=== PATIENT | male | born 1945 | race Caucasian/White ===

== ENCOUNTER → 2019-12-28 | Outpatient (CLI) | payer MEDICARE, OTHER ==
[~2019-12-28] MED LIST: prilosec
--- NOTE | 2019-12-28 14:42 | Diagnostic Imaging Report ---
EXAM: CT Chest WITHOUT intravenous contrast 12/28/2019 2:30 PM INDICATION: Pulmonary nodule, weight loss COMPARISON: None TECHNIQUE: Chest was scanned utilizing a multidetector helical scanner from the lung apex through the level of the adrenal glands without administration of IV contrast. Coronal and sagittal reformations were obtained. Routine protocol was performed. IV CONTRAST: None RADIATION DOSE: Total DLP: 265 mGy*cm. Dose modulation, iterative reconstruction, and/or weight based adjustment of the mA/kV was utilized to reduce the radiation dose to as low as reasonably achievable. COMPLICATIONS: None FINDINGS: LINES/ TUBES: None. LUNGS AND AIRWAYS: The central airways are patent. No focal consolidation or pulmonary edema. Minimal lower lobe subsegmental atelectasis. No suspicious pulmonary nodules. PLEURA: The pleural spaces are clear. HEART AND MEDIASTINUM: 8 mm hypodense right thyroid nodule is likely clinically insignificant and does not meet criteria for further imaging follow-up. No supraclavicular, axillary, mediastinal, or hilar lymphadenopathy. The heart is not enlarged. No pericardial effusion. Scattered atherosclerotic calcifications of the coronary arteries and thoracic aorta. UPPER ABDOMEN: No acute findings in the upper abdomen. BONES: No acute osseous injury. No suspicious lytic or blastic lesions. SOFT TISSUES: Unremarkable. IMPRESSION: No suspicious pulmonary nodule. No focal pneumonia or pulmonary edema. Signed by: Laurie Bullock MD on 12/28/2019 2:39 PM
== END ==
LOC: CT 13:46
PROVIDERS: ATTEND Family Medicine
DX: R91.1 Solitary pulmonary nodule (principal); R63.4 Abnormal weight loss
CPT/HCPCS: 71250